=== PATIENT | female | born 2000 | race Caucasian/White ===

== ENCOUNTER 2024-10-04 14:13 | Emergency (ER) | payer OTHER ==
[~2024-10-04] VITALS: Ht 167.6 cm; Wt 45.5 kg
[2024-10-04 14:18] VITALS: TEMP 98.2
[2024-10-04 15:14] LABS: APPEARANCE,URINE CLEAR (CLEAR); GLUCOSE, URINE (UA) NEGATIVE (NEGATIVE); LEUKOCYTE ESTERASE ,URINE MODERATE (NEGATIVE); NITRATE,URINE NEGATIVE (NEGATIVE); OCCULT BLOOD,URINE NEGATIVE (NEGATIVE); SPECIFIC GRAVITIY, URINE 1.021 (1.003-1.030)
[2024-10-04 15:45] LABS: SQUAMOUS EPITHELIAL CELL,UR Few /LPF (None Seen)
[2024-10-04] MEDS ORDERED: CEPH-558 PO (19:40)
[2024-10-04] MEDS: AZITHROMYCIN 500 MG TABLET PO ONE (19:47)
[2024-10-04] MEDS: CefTRIAXone SODIUM 1 GM/VIAL IM ONE (19:48)
[2024-10-04] MEDS: LIDOCAINE/PF 1% 2 ML VIAL IM ONE (19:49)
[2024-10-04 20:32] VITALS: BP 111/65; PULSE 67; RESP 18; O2SAT 99
== END 2024-10-04 20:38 | disposition home or self-care (01) ==
LOC: EMS 14:13
DX: N39.0 Urinary tract infection, site not specified (principal); Z20.2 Contact with and (suspected) exposure to infections with a predominantly sexual mode of transmission; Z88.0 Allergy status to penicillin
CPT/HCPCS: 99283; 81001; 87077; 87086; 87186; 36415; 87491; 87591; 96372; 87389; 84703; J0456; J0696; J3490

== ENCOUNTER 2024-10-24 16:46 | Emergency (ER) | payer OTHER ==
[~2024-10-24] VITALS: Ht 167.6 cm; Wt 45.5 kg
[~2024-10-24 16:46] MED LIST: CEPH-558 PO
[2024-10-24 16:54] VITALS: BP 104/73; PULSE 79; RESP 18; TEMP 98.5; O2SAT 97
[2024-10-24] MEDS ORDERED: NITR-104 PO (17:59)
[2024-10-24 18:03] LABS: APPEARANCE,URINE TURBID (CLEAR); GLUCOSE, URINE (UA) NEGATIVE (NEGATIVE); LEUKOCYTE ESTERASE ,URINE TRACE (NEGATIVE); NITRATE,URINE POSITIVE (NEGATIVE); OCCULT BLOOD,URINE NEGATIVE (NEGATIVE); SPECIFIC GRAVITIY, URINE 1.021 (1.003-1.030)
[2024-10-24 18:19] LABS: SQUAMOUS EPITHELIAL CELL,UR Few /LPF (None Seen)
[2024-10-24] MEDS ORDERED: METR500 PO (19:02)
== END 2024-10-24 19:22 | disposition home or self-care (01) ==
LOC: EMS 16:46
DX: N39.0 Urinary tract infection, site not specified (principal); N76.0 Acute vaginitis; B96.89 Other specified bacterial agents as the cause of diseases classified elsewhere; Z79.899 Other long term (current) drug therapy; Z88.0 Allergy status to penicillin
CPT/HCPCS: 81001; 84703; 87077; 87086; 87210; 99283

== ENCOUNTER 2025-03-03 15:36 | Emergency (ER) | payer OTHER ==
[~2025-03-03] VITALS: Ht 167.6 cm; Wt 45.0 kg
[~2025-03-03 15:36] MED LIST changes: +METR500 PO; +NITR-104 PO
[2025-03-03 16:04] VITALS: TEMP 98.2
[2025-03-03 16:51] VITALS: BP 118/73; PULSE 74; RESP 18; O2SAT 99
[2025-03-10] MEDS ORDERED: PRED-554 PO (22:26)
== END 2025-03-03 17:23 | disposition home or self-care (01) ==
LOC: EMS 15:36
DX: R79.9 Abnormal finding of blood chemistry, unspecified (principal); F41.9 Anxiety disorder, unspecified; Z88.0 Allergy status to penicillin; Z79.899 Other long term (current) drug therapy
CPT/HCPCS: 99282; Z7502